=== PATIENT | male | born 2000 | race African-American/Black ===

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

== ENCOUNTER 2020-08-08 08:13 | Emergency (ER) | payer OTHER ==
[~2020-08-08] VITALS: Wt 95.3 kg
[~2020-08-08 08:13] MED LIST changes: +ZOFRAN ODT4 MG SL
[2020-08-08] MEDS ORDERED: MONTELUKAST SOD10 MG PO (08:21)
[2020-08-08 08:23] VITALS: BP 142/77
[2020-08-08] MEDS ORDERED: PREDNISONE50 MG PO (08:57)
== END 2020-08-08 09:03 | disposition home or self-care (01) ==
LOC: ED 08:13
DX: R10.2 Pelvic and perineal pain (principal); M79.604 Pain in right leg

== ENCOUNTER 2021-04-17 17:55 | Emergency (ER) | payer OTHER ==
[~2021-04-17] VITALS: Ht 177.8 cm; Wt 99.8 kg
[~2021-04-17 17:55] MED LIST changes: +MONTELUKAST SOD10 MG PO; +PREDNISONE50 MG PO
[2021-04-17 20:29] VITALS: BP 138/83
== END 2021-04-18 02:43 | disposition home or self-care (01) ==
LOC: ED 17:55
DX: S05.01XA Injury of conjunctiva and corneal abrasion without foreign body, right eye, initial encounter (principal); X58.XXXA Exposure to other specified factors, initial encounter; Y93.89 Activity, other specified; Y92.89 Other specified places as the place of occurrence of the external cause; Y99.8 Other external cause status

== ENCOUNTER 2022-10-20 13:19 | Emergency (ER) | payer OTHER ==
[~2022-10-20] VITALS: Wt 99.8 kg
[2022-10-20] MEDS ORDERED: VENTOLIN,PR2 MG/5 ML PO (14:32)
[2022-10-20 16:37] LABS: BASO % 0.6 % (0.0-1.0); EOS % 0.4 % (1.0-4.0); LYMPH # 1.2 10*3/uL (1.3-4.4); LYMPH % 21.4 % (27.0-41.0); MEAN CELL VOLUME 90.9 fl (80.0-94.0); MEAN CORPUSCULAR HGB 29.5 pg (27.0-31.0); MEAN CORPUSCULAR HGB CONC 32.4 g/dl (33.0-37.0); MONO # 0.7 10*3/uL (0.1-1.0); MONO % 12.7 % (3.0-9.0); NEUT # 3.5 10*3/uL (2.3-7.9); NEUT % 64.5 % (47.0-73.0); PLATELET COUNT AUTOMATED 257 10*3/uL (130-400); RED BLOOD COUNT 5.39 10*6/uL (4.50-5.90); RED CELL DISTRI WIDTH 12.8 % (0-14.5); WHITE BLOOD COUNT 5.4 10*3/uL (4.8-10.8)
[2022-10-20 16:52] LABS: ALKALINE PHOSPHATASE 61 U/L (46-116); BUN 9 mg/dl (9-23); CHLORIDE 105 mmol/L (98-107); POTASSIUM 4.2 mmol/L (3.4-5.1); SGPT/ALT 12 U/L (10-49); TOTAL PROTEIN 7.3 gm/dL (6.0-8.0)
[2022-10-20 18:15] VITALS: BP 159/83
[2022-10-20] MEDS ORDERED: PREDNISONE20 M1 PO (19:36)
== END 2022-10-20 19:37 | disposition home or self-care (01) ==
LOC: ED 13:19
PROVIDERS: Physician Assistant
DX: M79.604 Pain in right leg (principal); J45.909 Unspecified asthma, uncomplicated; Z98.890 Other specified postprocedural states; Z88.8 Allergy status to other drugs, medicaments and biological substances